=== PATIENT | male | born 1960 | race Caucasian/White ===

== ENCOUNTER 2019-10-13 12:05 | Emergency (ER) | payer MEDICAID ==
[~2019-10-13] VITALS: Ht 175.3 cm; Wt 64.0 kg
[2019-10-13 12:40] LABS: BASOPHILS % 0.4 % (0.0-2.0); EOSINOPHILS % 0.1 % (0.0-5.0); HEMATOCRIT. 47.5 % (42.0-52.0); HEMOGLOBIN. 15.8 g/dL (14.0-18.0); LYMPHOCYTES % 9.3 % (20.0-50.0); MEAN CORPUSCULAR HEMOGLOBIN 28.9 pg (28.0-32.0); MEAN CORPUSCULAR VOLUME 86.7 fL (80.0-94.0); MEAN PLATELET VOLUME 7.4 fl (7.4-10.4); MONOCYTES % 9.1 % (2.0-8.0); NEUTROPHILS % 81.1 % (40.0-76.0); PLATELET 266 x1000/uL (130-400); RED BLOOD CELL COUNT 5.48 mill/uL (4.7-6.1); RED CELL DISTRIBUTION WIDTH 14.4 % (11.6-14.6)
[2019-10-13] MEDS ORDERED: OLANZAPINE 10 MG/VIAL IM ONE (12:45)
[2019-10-13] MEDS ORDERED: LORAZEPAM 2MG/ML CPJ IM ONE (12:45)
[2019-10-13 12:49] LABS: CHLORIDE 108 mEq/L (98-107)
[2019-10-13 12:52] LABS: ETHANOL BLOOD 43 mg/dL
[2019-10-13 13:00] LABS: CLARITY URINE CLEAR (CLEAR); COLOR URINE YELLOW (YELLOW); KETONES URINE 2+ (NEGATIVE); LEUKOCYTE ESTERASE URINE NEGATIVE (NEGATIVE); NITRITE URINE NEGATIVE (NEGATIVE); OCCULT BLOOD URINE NEGATIVE (NEGATIVE); PROTEIN URINE TRACE (NEGATIVE); SPECIFIC GRAVITY URINE 1.021 (1.005-1.030); UROBILINOGEN URINE 0.2 E.U./dL (0.2-1.0)
[2019-10-13] MEDS ORDERED: SODIUM CHLORIDE 0.9% 1,000 ML IV ONE (13:10)
[2019-10-13] MEDS ORDERED: DEXTROSE 50% WATER 50ML SYRINGE IV ONE (13:15)
[2019-10-13] MEDS ORDERED: FOLIC ACID 1 MG, THIAMINE HCL 100 MG, MVI, ADULT NO.1 10 ML in DEXTROSE 5% WATER 1,000 ML IV ONE ×4 (13:30)
[2019-10-13 14:30] LABS: *AMPHETAMINES SCREEN URINE PRESUMTIVE POSITIVE (NEGATIVE); *BARBITURATES SCREEN URINE NEGATIVE (NEGATIVE); *BENZODIAZEPINES SCREEN URINE NEGATIVE (NEGATIVE); *COCAINE SCREEN URINE NEGATIVE (NEGATIVE); METHADONE URINE SCREEN NEGATIVE (NEGATIVE)
[2019-10-13 14:31] LABS: CANNABINOID URINE SCREEN NEGATIVE (NEGATIVE); OPIATES URINE SCREEN NEGATIVE (NEGATIVE); PHENCYCLIDINE URINE SCREEN NEGATIVE (NEGATIVE)
[2019-10-14] MEDS ORDERED: LORAZEPAM 1MG TABLET PO ONE (14:15)
[2019-10-15] MEDS ORDERED: HALOPERIDOL 5MG TABLET PO ONE ×2 (07:15→07:30)
[2019-10-15 19:45] VITALS: BP 110/64
== END 2019-10-15 19:50 | disposition short-term general hospital (02) ==
LOC: ER 12:32
DX: R45.851 Suicidal ideations (principal); F20.9 Schizophrenia, unspecified; F31.9 Bipolar disorder, unspecified; F10.129 Alcohol abuse with intoxication, unspecified; E16.2 Hypoglycemia, unspecified; F15.10 Other stimulant abuse, uncomplicated
CPT/HCPCS: 36415; 80053; 80305; 80307; 80320; 80329; 81003; 82962; 85025; 96365; 96366; 96372; 96375; 99284; J1630; J2060; J3411; J3490; J7030; J7070; G0480

== ENCOUNTER 2019-11-01 21:09 | Emergency (ER) | payer SELFPAY ==
[~2019-11-01] VITALS: Ht 177.8 cm; Wt 82.0 kg
[2019-11-01 21:56] LABS: CHLORIDE 109 mEq/L (98-107)
[2019-11-01 22:08] LABS: HEMATOCRIT. 44.2 % (42.0-52.0); HEMOGLOBIN. 14.7 g/dL (14.0-18.0); MEAN CORPUSCULAR HEMOGLOBIN 28.2 pg (28.0-32.0); MEAN CORPUSCULAR VOLUME 84.8 fL (80.0-94.0); MEAN PLATELET VOLUME 8.3 fl (7.4-10.4); PLATELET 204 x1000/uL (130-400); RED BLOOD CELL COUNT 5.21 mill/uL (4.7-6.1); RED CELL DISTRIBUTION WIDTH 13.7 % (11.6-14.6)
[2019-11-01 23:10] LABS: *AMPHETAMINES SCREEN URINE NEGATIVE (NEGATIVE); *BARBITURATES SCREEN URINE NEGATIVE (NEGATIVE); *BENZODIAZEPINES SCREEN URINE NEGATIVE (NEGATIVE); *COCAINE SCREEN URINE NEGATIVE (NEGATIVE); METHADONE URINE SCREEN NEGATIVE (NEGATIVE); OPIATES URINE SCREEN NEGATIVE (NEGATIVE)
[2019-11-01 23:11] LABS: CANNABINOID URINE SCREEN NEGATIVE (NEGATIVE); PHENCYCLIDINE URINE SCREEN NEGATIVE (NEGATIVE)
[2019-11-01 23:18] LABS: NUCLEATED RED BLOOD CELLS 1 /100 WBC; PLATELET ESTIMATE NORMAL
[2019-11-02 14:44] VITALS: BP 128/75
== END 2019-11-02 14:45 | disposition home or self-care (01) ==
LOC: ER 21:26
DX: F15.10 Other stimulant abuse, uncomplicated (principal); R07.89 Other chest pain; F20.9 Schizophrenia, unspecified; F32.9 Major depressive disorder, single episode, unspecified; F17.210 Nicotine dependence, cigarettes, uncomplicated; Z59.0 Homelessness; Z91.14 Patient's other noncompliance with medication regimen; Z88.8 Allergy status to other drugs, medicaments and biological substances; Z98.890 Other specified postprocedural states
CPT/HCPCS: 36415; 71045; 80053; 80305; 84484; 85025; 93005; 99284; Z7610

== ENCOUNTER 2019-11-25 04:28 | Emergency (ER) | payer MEDICAID ==
[~2019-11-25] VITALS: Ht 185.4 cm; Wt 100.0 kg
[2019-11-25 06:02] LABS: BASOPHILS % 0.8 % (0.0-2.0); EOSINOPHILS % 0.8 % (0.0-5.0); HEMATOCRIT. 45.9 % (42.0-52.0); HEMOGLOBIN. 15.3 g/dL (14.0-18.0); LYMPHOCYTES % 24.1 % (20.0-50.0); MEAN CORPUSCULAR HEMOGLOBIN 27.8 pg (28.0-32.0); MEAN CORPUSCULAR VOLUME 83.4 fL (80.0-94.0); MEAN PLATELET VOLUME 7.8 fl (7.4-10.4); MONOCYTES % 14.9 % (2.0-8.0); NEUTROPHILS % 59.4 % (40.0-76.0); PLATELET 186 x1000/uL (130-400); RED BLOOD CELL COUNT 5.51 mill/uL (4.7-6.1); RED CELL DISTRIBUTION WIDTH 14.2 % (11.6-14.6)
[2019-11-25 06:04] LABS: PROTHROMBIN TIME 10.7 sec (9.6-11.0)
[2019-11-25 06:05] LABS: CHLORIDE 110 mEq/L (98-107)
[2019-11-25 06:09] LABS: ETHANOL BLOOD < 10 mg/dL
[2019-11-25 06:25] LABS: *AMPHETAMINES SCREEN URINE PRESUMTIVE POSITIVE (NEGATIVE); *BARBITURATES SCREEN URINE NEGATIVE (NEGATIVE); *BENZODIAZEPINES SCREEN URINE NEGATIVE (NEGATIVE); *COCAINE SCREEN URINE NEGATIVE (NEGATIVE)
[2019-11-25 06:25] LABS: CREATINE KINASE 3469 IU/L (39-308)
[2019-11-25 06:26] LABS: CANNABINOID URINE SCREEN NEGATIVE (NEGATIVE); METHADONE URINE SCREEN NEGATIVE (NEGATIVE); OPIATES URINE SCREEN NEGATIVE (NEGATIVE); PHENCYCLIDINE URINE SCREEN NEGATIVE (NEGATIVE)
[2019-11-25] MEDS ORDERED: SODIUM CHLORIDE 0.9% 1,000 ML IV ONE (06:45)
[2019-11-25] MEDS ORDERED: BUPROPION HCL 75MG TABLET PO ONE (07:00)
[2019-11-25] MEDS: QUETIAPINE FUMARATE 25MG TABLET PO SCH (08:11)
[2019-11-25 14:55] LABS: CREATINE KINASE 3152 IU/L (39-308)
[2019-11-25] MEDS ORDERED: ACETAMINOPHEN 500MG TABLET PO ONE (15:45)
[2019-11-25] MEDS ORDERED: OLANZAPINE 10 MG/VIAL IM ONE (15:45)
[2019-11-26 08:39] LABS: CREATINE KINASE 1238 IU/L (39-308)
[2019-11-26] MEDS ORDERED: SODIUM CHLORIDE 0.9% 1,000 ML IV ONE ×2 (11:10→18:15)
[2019-11-26 17:26] LABS: CREATINE KINASE 781 IU/L (39-308)
[2019-11-27] MEDS ORDERED: LORAZEPAM 1MG TABLET PO ONE (19:15)
[2019-11-27] MEDS ORDERED: RISPERIDONE 1MG TABLET PO ONE (19:15)
[2019-11-27] MEDS: RISPERIDONE 1MG TABLET PO SCH (21:52)
[2019-11-28] MEDS ORDERED: LORAZEPAM 1MG TABLET PO ONE (09:00)
[2019-11-28] MEDS: RISPERIDONE 1MG TABLET PO SCH ×2 (09:14→21:22)
[2019-11-28] MEDS: QUETIAPINE FUMARATE 25MG TABLET PO SCH (10:57)
[2019-11-29] MEDS: QUETIAPINE FUMARATE 25MG TABLET PO SCH (08:00)
[2019-11-29] MEDS: RISPERIDONE 1MG TABLET PO SCH ×2 (10:40→21:42)
[2019-11-30] MEDS: QUETIAPINE FUMARATE 25MG TABLET PO SCH (07:00)
[2019-11-30] MEDS: RISPERIDONE 1MG TABLET PO SCH ×2 (09:56→21:00)
[2019-11-30] MEDS ORDERED: LORAZEPAM 1MG TABLET PO ONE (15:30)
[2019-12-01] MEDS: RISPERIDONE 1MG TABLET PO SCH ×2 (10:08→23:00)
[2019-12-01] MEDS ORDERED: LORAZEPAM 1MG TABLET PO ONE (19:45)
[2019-12-02] MEDS ORDERED: LORAZEPAM 1MG TABLET PO ONE ×2 (08:30→17:15)
[2019-12-02] MEDS: RISPERIDONE 1MG TABLET PO SCH ×2 (08:37→20:42)
[2019-12-03 08:24] VITALS: BP 115/77
[2019-12-03] MEDS: RISPERIDONE 1MG TABLET PO SCH (09:25)
== END 2019-12-03 09:27 | disposition home or self-care (01) ==
LOC: ER 04:29
DX: R45.851 Suicidal ideations (principal); F20.9 Schizophrenia, unspecified; M62.82 Rhabdomyolysis; F15.10 Other stimulant abuse, uncomplicated; F19.959 Other psychoactive substance use, unspecified with psychoactive substance-induced psychotic disorder, unspecified; F10.10 Alcohol abuse, uncomplicated; Z59.0 Homelessness; Z88.8 Allergy status to other drugs, medicaments and biological substances
CPT/HCPCS: 36415; 80053; 80305; 80307; 80320; 80329; 82550; 83690; 84443; 84484; 85025; 85610; 93005; 96360; 96361; 96372; 99284; J3490; J7030; Z7610; G0480